=== PATIENT | male | born 1990 | race Caucasian/White ===

== ENCOUNTER → 2021-02-25 | Outpatient (CLI) | payer OTHER ==
[~2021-02-25] MED LIST: MULTIVITAMINS PO; PROSTATE HEALT1 EACH PO
== END ==
LOC: CAT 02-17 07:45
PROVIDERS: ATTEND Pediatrics
DX: R91.1 Solitary pulmonary nodule (principal)

== ENCOUNTER → 2021-08-15 | Outpatient (CLI) | payer OTHER | LOC: CAT 05-25 14:24 | PROVIDERS: ATTEND Pediatrics | DX: R91.1 Solitary pulmonary nodule (principal); R91.8 Other nonspecific abnormal finding of lung field ==